=== PATIENT | female | born 1950 | race Caucasian/White ===

== ENCOUNTER 2019-06-18 07:40 | Day surgery (SDC) | payer MEDICARE ==
[~2019-06-18] VITALS: Ht 165.1 cm; Wt 61.2 kg
[~2019-06-18 07:40] MED LIST: BROM500T2 PO; CALC500T52 PO; CALTTAB6 PO; COLA100C5 PO; LISI-1046 PO; SERT25TA85 PO; SIMV20TA2 PO; ZYRTTAB8 PO; [UNRECOGNIZED DRUG - OTHER] PO
[2019-06-18] MEDS ORDERED: PROPOFOL 200 MG/20 ML VIAL As Ordered ONE ×2 (08:03→09:06)
[2019-06-18] MEDS ORDERED: LIDOCAINE 2% INJ 100 MG/5 ML SDV (FOR ANES.) As Ordered ONE (08:03)
--- NOTE | 2019-06-18 09:07 | ROOR ---
Patient Name: Suzi Souza Procedure Date: 06/18/2019 8:46 AM Date of : 1950 Age: 68 Room: [facility] Gender: Female Note Status: Finalized Procedure: Colonoscopy Indications: Screening patient at increased risk: Family history of 1st-degree relative with colorectal cancer at age 60 years (or older) Providers: All Chiang Jr, MD Referring MD: Adela Fraga DO Requesting Provider: Medicines: Propofol per Anesthesia Complications: No immediate complications. Procedure: Pre-Anesthesia Assessment: - Prior to the procedure, a History and Physical was performed, and patient medications and allergies were reviewed. The patient is competent. The risks and benefits of the procedure and the sedation options and risks were discussed with the patient. All questions were answered and informed consent was obtained. Patient identification and proposed procedure were verified by the physician and the nurse in the pre-procedure area and in the procedure room. Mental Status Examination: alert and oriented. Airway Examination: normal oropharyngeal airway and neck mobility. Respiratory Examination: clear to auscultation. CV Examination: normal. ASA Grade Assessment: II - A patient with mild systemic disease. After reviewing the risks and benefits, the patient was deemed in satisfactory condition to undergo the procedure. The anesthesia plan was to use moderate sedation / analgesia (conscious sedation). Immediately prior to administration of medications, the patient was re-assessed for adequacy to receive sedatives. The heart rate, respiratory rate, oxygen saturations, blood pressure, adequacy of pulmonary ventilation, and response to care were monitored throughout the procedure. The physical status of the patient was re-assessed after the procedure. The Colonoscope was introduced through the anus and advanced to the cecum, identified by appendiceal orifice and ileocecal valve. The colonoscopy was performed without difficulty. The patient tolerated the procedure well. The quality of the bowel preparation was adequate. Findings: The rectum, recto-sigmoid colon, transverse colon, ascending colon, cecum, appendiceal orifice and ileocecal valve appeared normal. Multiple small and large-mouthed diverticula were found in the sigmoid colon and descending colon. Non-bleeding external and internal hemorrhoids were found during endoscopy. The hemorrhoids were Grade II (internal hemorrhoids that prolapse but reduce spontaneously) and Grade III (internal hemorrhoids that prolapse but require manual reduction). Impression: - The rectum, recto-sigmoid colon, transverse colon, ascending colon, cecum, appendiceal orifice and ileocecal valve are normal. - Diverticulosis in the sigmoid colon and in the descending colon. - Non-bleeding external and internal hemorrhoids. - No specimens collected. Recommendation: - Repeat colonoscopy in 5 years for surveillance. All Chiang MD All Chiang Jr, MD 06/18/2019 9:07:14 AM Electronically signed by All Chiang Jr, MD Number of Addenda: 0 Note Initiated On: 06/18/2019 8:46 AM Estimated Blood Loss: Estimated blood loss: none.
[2019-06-18 09:36] VITALS: BP 110/56
== END 2019-06-18 09:37 | disposition home or self-care (01) ==
LOC: M OPP 07:40
PROVIDERS: ATTEND Surgery
DX: Z12.11 Encounter for screening for malignant neoplasm of colon (principal); Z80.0 Family history of malignant neoplasm of digestive organs; K64.2 Third degree hemorrhoids; K57.30 Diverticulosis of large intestine without perforation or abscess without bleeding

== ENCOUNTER → 2019-12-07 | Outpatient (REF) | payer MEDICARE ==
[~2019-12-07] MED LIST changes: -SIMV20TA2 PO; +SIMV20TA22 PO
[2019-12-08 07:13] LABS: H PYLORI QUALITATIVE IgG NEGATIVE (NEGATIVE)
== END ==
LOC: M LAB REF 16:33
PROVIDERS: ATTEND Internal Medicine
DX: R10.11 Right upper quadrant pain (principal)

== ENCOUNTER → 2021-03-21 | Outpatient (CLI) | payer MEDICARE ==
[~2021-03-21] MED LIST changes: -LISI-1046 PO; +LISI2.5T2 PO
--- NOTE | 2021-03-21 09:43 | REPMRS ---
Patient History The patient states she has not had a clinical breast exam in over a year. Patient is postmenopausal. Family history of colorectal cancer at age 65 in mother, endometrial cancer in maternal grandmother. Patient states no breast complaints today. Patient has signed MRS History Sheet. Digital Woman Screen Mammo: March 21, 2021 - Exam #: [id number] Bilateral CC and MLO view(s) were taken. Technologist: Mónica Bailey, Technologist Prior study comparison: March 13, 2019, bilateral digital mammo screening bilat, performed at [facility]. February 13, 2018, bilateral digital mammo screening bilat, performed at [facility]. November 26, 2016, left breast digital mammo diagnostic unilateral, performed at [facility]. November 23, 2016, bilateral digital mammo screening bilat, performed at [facility]. FINDINGS: The breast tissue is almost entirely fat. The [facility]para volumetric breast density category is: A. There has been no change in the appearance of the mammogram from the prior studies. There is no interval development of dominant mass, architectural distortion, or grouped microcalcification typical of malignancy. 3-D tomosynthesis shows no additional findings. Assessment: BI-RADS/ACR category 1 mammogram. Negative Mammogram. Recommendation Routine screening mammogram of both breasts in 1 year (for women over age 40). This patient's [facility] Lifetime Breast Cancer RIsk is estimated at 3.7 %. This mammogram was interpreted with the aid of an FDA-approved computer-aided dectection system. Electronically Signed By: Guillaume Rodríguez MD 03/21/21 0942
== END ==
LOC: M WHC 08:27
PROVIDERS: ATTEND Internal Medicine
DX: Z12.31 Encounter for screening mammogram for malignant neoplasm of breast (principal)

== ENCOUNTER → 2021-06-15 | Outpatient (REF) | payer MEDICARE ==
[~2021-06-15] MED LIST changes: -LISI2.5T2 PO; +LISI2.5T9 PO
== END ==
LOC: M LAB REF 16:42
PROVIDERS: ATTEND Internal Medicine
DX: Q66.50 Congenital pes planus, unspecified foot (principal)

== ENCOUNTER → 2021-08-10 | Outpatient (CLI) | payer MEDICARE ==
--- NOTE | 2021-08-10 12:23 | REP ---
INDICATION: PAIN, OTHER SYNOVITIS AND TENOSYNOVITIS. CHRONIC MEDIAL PAIN COMPARISON: None. TECHNIQUE: Sagittal fat suppressed T2 and proton density. Coronal proton density, fat suppressed proton density and STIR. Axial fat suppressed proton density and T1. FINDINGS: The tendons of the tibialis anterior, extensor hallucis, and extensor digitorum muscles are intact and of normal appearing low signal throughout. There is abnormal enlargement and T2 hyper signal seen in the posterior tibial tendon at the level of the mid talus. Increased Daly tendinous fluid is seen in the flexor digitorum tendon mid plantar aspect of the foot. There is increased Daly tendinous fluid seen in the flexor hallucis tendon just distal to the tibiotalar joint. The Achilles tendon is intact and of normal appearing low signal throughout. The peroneal tendons are intact and of normal appearing low signal throughout. The anterior and posteroinferior tibiofibular ligaments are intact. The anterior and posterior talofibular ligaments are intact. The calcaneofibular ligament is intact. The ligaments within the sinus tarsi are within normal limits and the sinus tarsi adipose signal is preserved. There is a slight tibiotalar joint effusion particularly anteriorly. There is a mild heel valgus deformity. There is no abnormal cystic degenerative change in the os calcis deep to the angle of Gissane. The lateral talar process is sharp and without abnormal cystic degenerative change peer the subtalar joints are within normal limits. There is mild edema in the deltoid ligament complex which is intact. The chondral surfaces of the talar dome and tibial plafond are smooth and without abnormal chondral or subchondral signal. IMPRESSION: 1. The posterior tibial tendon is torn. 2. There is flexor digitorum and flexor hallucis tendinitis. 3. Joint effusion as described above. 4. Mild edema in the deltoid ligament complex which is intact. 5. Other findings as described above. <Electronically signed by Elliott Gonsalez > 08/10/21 [id number]
== END ==
LOC: M PLAIMG 11:08
PROVIDERS: ATTEND Podiatrist
DX: M65.872 Other synovitis and tenosynovitis, left ankle and foot (principal); S86.112A Strain of other muscle(s) and tendon(s) of posterior muscle group at lower leg level, left leg, initial encounter; X58.XXXA Exposure to other specified factors, initial encounter; Y92.9 Unspecified place or not applicable

== ENCOUNTER → 2022-03-06 | Outpatient (REF) | payer MEDICARE ==
[2022-03-06 17:06] LABS: PERCENT SATURATION 26.7 % (13.2-45.0)
== END ==
LOC: M LAB REF 16:16
PROVIDERS: ATTEND Internal Medicine
DX: E78.5 Hyperlipidemia, unspecified (principal); R00.2 Palpitations; D50.9 Iron deficiency anemia, unspecified

== ENCOUNTER → 2022-06-29 | Outpatient (CLI) | payer MEDICARE | LOC: M WHC 15:02 | PROVIDERS: ATTEND Internal Medicine | DX: Z12.31 Encounter for screening mammogram for malignant neoplasm of breast (principal) ==

== ENCOUNTER → 2022-11-21 | Outpatient (REF) | payer MEDICARE ==
[2022-11-21 17:22] LABS: PERCENT SATURATION 25.6 % (13.2-45.0)
[2022-11-21 17:23] LABS: FERRITIN 138.6 NG/ML (7.3-270.7)
== END ==
LOC: M LAB REF 16:11
PROVIDERS: ATTEND Internal Medicine
DX: D64.9 Anemia, unspecified (principal)

== ENCOUNTER → 2023-09-25 | Outpatient (CLI) | payer MEDICARE | LOC: M WHC 10:27 | PROVIDERS: ATTEND Internal Medicine | DX: Z12.31 Encounter for screening mammogram for malignant neoplasm of breast (principal) ==

== ENCOUNTER → 2023-11-12 | Outpatient (CLI) | payer MEDICARE | LOC: M WUC 10:48 | PROVIDERS: ATTEND Internal Medicine | DX: M54.2 Cervicalgia (principal); M47.892 Other spondylosis, cervical region ==

== ENCOUNTER 2024-06-20 19:52 | Emergency (ER) | payer MEDICARE ==
[~2024-06-20] VITALS: Ht 167.6 cm; Wt 61.4 kg
[2024-06-20] MEDS ORDERED: MECL-86 PO (20:15)
[2024-06-20] MEDS ORDERED: LEVO25TA5 PO (20:15)
[2024-06-20 20:35] LABS: BASO # 0.1 10^3/uL (0.0-0.2); BASO % 0.6 % (0.0-1.0); EOS # 0.3 10^3/uL (0.0-0.5); HEMATOCRIT 40.1 % (36.0-47.0); HEMOGLOBIN 13.5 g/dl (12.0-15.5); LYMPH # 3.7 10^3/uL (1.5-5.0); LYMPH % 46.5 % (24.0-44.0); MEAN CORPUSCULAR HEMOGLOBIN 31.8 pg (27.0-33.0); MEAN CORPUSCULAR HGB CONC 33.7 g/dl (32.0-36.5); MEAN CORPUSCULAR VOLUME 94.6 fl (80.0-96.0); MONO # 0.8 10^3/uL (0.0-0.8); MONO % 9.8 % (2.0-8.0); NEUTROPHILS # 3.1 10^3/uL (1.5-8.5); NEUTROPHILS % 38.8 % (36.0-66.0); PLATELET COUNT, AUTOMATED 250 10^3/uL (150-450); RED BLOOD COUNT 4.24 10^6/uL (4.00-5.40); WHITE BLOOD COUNT 7.9 10^3/uL (4.0-10.0)
[2024-06-20 20:59] LABS: CK-MB VALUE MASS 1.7 NG/ML (<3.6); ETHYL ALCOHOL (ETHANOL) 0.004 % (0.000-0.010)
[2024-06-20 21:01] LABS: ALBUMIN 3.8 G/DL (3.2-5.2); BILIRUBIN,DIRECT 0.1 MG/DL (<0.4); BILIRUBIN,TOTAL 0.5 MG/DL (0.3-1.2); CALCIUM LEVEL 9.4 MG/DL (8.3-10.6); CREATININE FOR GFR 1.27 MG/DL (0.55-1.30); GLOMERULAR FILTRATION RATE 43.7 (>39); MB/CK RELATIVE INDEX 1.44 (< OR =4); POTASSIUM SERUM 4.1 MMOL/L (3.5-5.1); TOTAL PROTEIN 6.7 G/DL (5.7-8.2)
[2024-06-20] MEDS: NS 1,000 ML IV ONE (21:08)
[2024-06-20] MEDS: LORazepam 2 MG/ML 1ML VIAL IV STA (21:45)
[2024-06-20 22:50] LABS: AMPHETAMINES LEVEL URINE NEGATIVE (NEGATIVE); BARBITURATES URINE NEGATIVE (NEGATIVE); BENZODIAZEPINES URINE NEGATIVE (NEGATIVE)
[2024-06-20 22:51] LABS: COCAINE METABOLITE URINE NEGATIVE (NEGATIVE); METHADONE URINE NEGATIVE (NEGATIVE); OPIATES URINE NEGATIVE (NEGATIVE); PHENCYCLIDINE URINE NEGATIVE (NEGATIVE)
[2024-06-20 22:53] LABS: CK-MB VALUE MASS 1.5 NG/ML (<3.6)
[2024-06-20 22:55] LABS: MB/CK RELATIVE INDEX 1.4 (< OR =4)
[2024-06-20 22:57] LABS: FREE T4 1.05 NG/DL (0.89-1.76); THYROID STIMULATING HORMONE 1.22 uIU/ML (0.55-4.78)
[2024-06-20 22:58] LABS: CANNABINOIDS URINE POSITIVE (NEGATIVE)
[2024-06-21 02:15] VITALS: BP 104/78
[2024-06-21 02:22] VITALS: TEMP 97.1; O2SAT 95
== END 2024-06-21 02:44 | disposition home or self-care (01) ==
LOC: M ED 19:52
DX: R53.1 Weakness (principal); T40.715A Adverse effect of cannabis, initial encounter; R00.0 Tachycardia, unspecified; I10 Essential (primary) hypertension; E78.5 Hyperlipidemia, unspecified; F10.10 Alcohol abuse, uncomplicated; Z88.0 Allergy status to penicillin; Z88.8 Allergy status to other drugs, medicaments and biological substances; Z79.811 Long term (current) use of aromatase inhibitors; Z79.899 Other long term (current) drug therapy
CPT/HCPCS: 70450; 80048; 80076; 80307; 81001; 82077; 82550; 82553; 83605; 83690; 84439; 84443; 84484; 85025; 87086; 93005; 93041; 96361; 96374; 99285; J2060

== ENCOUNTER → 2024-12-11 | Outpatient (CLI) | payer MEDICARE ==
[~2024-12-11] MED LIST changes: +LEVO25TA5 PO; +MECL-86 PO
== END ==
LOC: M WHC 09:17
PROVIDERS: ATTEND Internal Medicine
DX: Z13.820 Encounter for screening for osteoporosis (principal); M85.89 Other specified disorders of bone density and structure, multiple sites

== ENCOUNTER 2025-02-04 07:56 | Day surgery (SDC) | payer MEDICARE ==
[~2025-02-04] VITALS: Ht 165.1 cm; Wt 61.6 kg
[~2025-02-04 07:56] MED LIST changes: +ACIDCAP8 PO; +BIOT10009 PO; +CETI10CA13 PO; +D31000TA PO; +OMEGCAP9 PO; +SIMV40TA20 PO
[2025-02-04] MEDS ORDERED: propofoL 200 MG/20 ML VIAL As Ordered ONE (08:50)
[2025-02-04 09:44] VITALS: TEMP 97.6
[2025-02-04 10:01] VITALS: BP 116/58; O2SAT 99
== END 2025-02-04 10:12 | disposition home or self-care (01) ==
LOC: M OPP 07:56
PROVIDERS: ATTEND Surgery
DX: Z12.11 Encounter for screening for malignant neoplasm of colon (principal); D12.2 Benign neoplasm of ascending colon; K57.30 Diverticulosis of large intestine without perforation or abscess without bleeding; K64.2 Third degree hemorrhoids; Z80.0 Family history of malignant neoplasm of digestive organs; Z88.0 Allergy status to penicillin; Z88.8 Allergy status to other drugs, medicaments and biological substances; Z79.899 Other long term (current) drug therapy; Z87.891 Personal history of nicotine dependence

== ENCOUNTER → 2025-02-16 | Outpatient (CLI) | payer MEDICARE | LOC: M PLAIMG 10:55 | PROVIDERS: ATTEND Internal Medicine | DX: R20.0 Anesthesia of skin (principal); M47.896 Other spondylosis, lumbar region ==

== ENCOUNTER → 2025-02-26 | Outpatient (CLI) | payer MEDICARE | LOC: M PLARAD 08:30 | PROVIDERS: ATTEND Internal Medicine | DX: M47.26 Other spondylosis with radiculopathy, lumbar region (principal); M25.78 Osteophyte, vertebrae ==

== ENCOUNTER → 2025-05-06 | Outpatient (REF) | payer MEDICARE | LOC: M LAB REF 14:55 | PROVIDERS: ATTEND Internal Medicine | DX: D64.9 Anemia, unspecified (principal) ==